=== PATIENT | female | born 1980 | race Two or more races ===

== ENCOUNTER → 2024-07-25 | Outpatient (CLI) | payer MEDICAID, SELFPAY ==
--- NOTE | 2024-07-25 10:45 | XR_ITS ---
Examination: Screening digital mammography, bilateral Computer aided detection 3-D breast Tomosynthesis, bilateral Date and time of exam: July 25, 2024 1044 hours No priors Indication: Screening Technique: Nonmagnified MLO, CC views of the breasts to been obtained, reconstructed from 3-D Tomosynthesis images. R2 computer aided detection program utilized for evaluation of suspicious masses and/or abnormal calcifications. 3-D Tomosynthesis images obtained. Findings: The breasts are heterogeneously dense, which may obscure small masses Benign calcifications No suspicious masses Impression: BI-RADS category II: Benign Findings. Recommend 1 year follow-up mammogram.
== END | disposition home or self-care (01) ==
PROVIDERS: PCP Obstetrics & Gynecology; Referring Provider Obstetrics & Gynecology; Visit Provider Obstetrics & Gynecology
DX: Z12.31 Encounter for screening mammogram for malignant neoplasm of breast (principal); R92.323 Mammographic fibroglandular density, bilateral breasts; R92.1 Mammographic calcification found on diagnostic imaging of breast
CPT/HCPCS: 77063; 77067

== ENCOUNTER → 2025-01-13 | Outpatient (CLI) | payer MEDICAID, SELFPAY ==
--- NOTE | 2025-01-13 | XR_ITS ---
Examination: Right hand 2 views Technique one AP lateral right hand 2 views Date and time: January 13, 2025 1128 hours INDICATIONS: Right hand pain beginning 2 months ago. FINDINGS: Mild juxta-articular bone demineralization. No fracture or dislocation. No erosive or other significant arthritic change. IMPRESSION: No erosive or other significant arthritic change
== END | disposition home or self-care (01) ==
PROVIDERS: PCP Obstetrics & Gynecology; Referring Provider Obstetrics & Gynecology; Visit Provider Obstetrics & Gynecology
DX: M79.641 Pain in right hand (principal)
CPT/HCPCS: 73120

== ENCOUNTER 2025-03-29 09:55 | Emergency (ER) | payer MEDICAID, SELFPAY ==
--- NOTE | 2025-03-29 10:07 | EKG_ITS ---
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
[2025-03-29 10:12] VITALS: BP 126/87; PULSE 76; RESP 16; TEMP 36.6; O2SAT 100; BMI 26.6
--- NOTE | 2025-03-29 10:25 | XR_ITS ---
Examination: CT brain head without contrast. 2-D sagittal coronal reconstructions Date and time of exam: March 29, 2025, 1035 hours, comparison March 31, 2021 INDICATIONS: Onset generalized head pain and dizziness today CTDI: vol (mGy): 47.5 DLP: (mGycm): 892 Technique: Multiple CT axial sections of the brain have been obtained, 5 mm slice thickness. Contrast has not been administered. 2-D sagittal, coronal reconstructions have been obtained Low dose protocols were performed. One or more of the following dose reduction techniques were used; automated exposure control, adjustment of the mA and/or KV according to patient size, use of iterative reconstruction technique. Findings: No significant ventricular enlargement. Intra-axial or extra-axial hemorrhage density is not seen. No mass effect or midline shift Basal cisterns are not remarkable. Fourth ventricle is midline. Cranial vault intact. Impression: Negative for acute hemorrhage, mass effect or midline shift Advise clinical correlation and follow-up accordingly
--- NOTE | 2025-03-29 10:25 | PD.EDRME ---
Rapid Medical Screening Exam [facility] Arrival date/time: 03/29/25 09:55 44-year-old female presents to the Emergency Department today for complaints of dizziness and fatigue today. Chief Complaint: Dizziness Vital signs: Vital Signs Temperature 97.8 F 03/29/25 10:12 Pulse Rate 76 03/29/25 10:12 Respiratory Rate 16 03/29/25 10:12 Blood Pressure 126/87 H 03/29/25 10:12 Pulse Oximetry (%) 100 03/29/25 10:12 Oxygen Delivery Method Room Air 03/29/25 10:12 Vital signs reviewed by provider: Yes Exam: On exam patient hemodynamically stable does not appear ill or toxic Clinical Impression: Labs and imaging obtained
[2025-03-29] MEDS: MECLIZINE HCL 25 MG TABLET 50 MG PO (10:36)
[2025-03-29 10:48] LABS: Basophils # (Auto) 0.0 Thou/mm3 (0.0-0.2); Basophils % (Auto) 0 % (0-2.5); Eosinophils # (Auto) 0.2 Thou/mm3 (0.0-0.5); Eosinophils % (Auto) 2 % (0-10); Hematocrit 37.0 % (36.0-46.0); Hemoglobin 12.5 g/dL (12.0-16.0); Immature Granulocytes Auto 0.02 Thou/mm3 (0.00-0.00); Lymphocytes # (Auto) 3.4 Thou/mm3 (1.0-4.8); Lymphocytes % (Auto) 40 % (10-50); Mean Corpuscular HGB Conc 33.8 g/dl (31.0-37.0); Mean Corpuscular Hemoglobin 30.9 pg (25.0-35.0); Mean Corpuscular Volume 92 fL (80-100); Monocytes # (Auto) 0.5 Thou/mm3 (0.0-0.8); Monocytes % (Auto) 5 % (0-12); Neutrophils # (Auto) 4.5 Thou/mm3 (1.8-7.7); Neutrophils % (Auto) 53 % (37-80); Nucleated Red Blood Cell # 0.00 Thou/mm3 (0.00-0.00); Nucleated Red Blood Cell % 0 /100 WBC (0); Platelet Count 214 Thou/mm3 (140-440); RDW Standard Deviation 42.9 fL (36.4-46.3); Red Blood Count 4.04 Miln/mm3 (4.00-5.20); White Blood Count 8.5 Thou/mm3 (3.6-11.0)
[2025-03-29 11:04] LABS: Alanine Aminotransferase 10 U/L (10-49); Albumin, Serum 4.8 gm/dL (3.5-5.0); Albumin/Globulin Ratio 2.1 (1.2-2.2); Alkaline Phosphatase 75 U/L (46-116); Anion Gap 10 (7-16); Aspartate Amino Transferase 17 U/L (0-34); BUN/Creatinine Ratio 12 Ratio (12-20); Bilirubin,Total 0.7 mg/dL (0.3-1.2); Blood Urea Nitrogen 7 mg/dL (9-23); Calcium 9.2 mg/dL (8.3-10.6); Calcium (Corrected) 9.2 mg/dL (8.5-10.1); Carbon Dioxide 23.3 mMol/L (20.0-31.0); Chloride 106 mMol/L (98-107); Creatinine (Component) 0.6 mg/dL (0.6-1.3); Estimated Creatinine Clearance 109.0 mL/min (>60); Globulin 2.3 gm/dL (2.3-3.5); Glucose 113 mg/dL (74-106); Osmolality,Calculated 276 (275-295); Potassium 3.8 mMol/L (3.4-5.1); Sodium 139 mMol/L (136-145); Total Protein 7.1 gm/dL (5.7-8.2); Troponin I < 0.002 ng/mL (0.0-0.045); eGFR > 60 See Note
[2025-03-29 11:12] LABS: Collection Type, Urine Clean Catch
[2025-03-29 11:25] LABS: Bacteria,Urine 1+; Bilirubin,Urine Negative (Negative); Blood,Urine Negative (Negative); Color,Urine Yellow (Lt Yel-Yel); Culture Indicated,Urine Contaminated; Glucose, Urine Negative (Negative); Hyaline Casts,Urine < 1 /hpf (0-1); Ketones,Urine Negative (Negative); Leukocyte Esterase,Urine Positive (Negative); Nitrite,Urine Negative (Negative); PH,Urine 6.5 (5.0-7.0); Protein,Urine 1+ (Neg - Trace); RBC,Urine 6 /hpf (0-3); Specific Gravity,Urine 1.027 (1.001-1.035); Squamous Epithelial Cell,Urine 14 /hpf (0-5); Urobilinogen,Urine Negative mg/dL (0.0-1.0); WBC,Urine 5 /hpf (0-5)
[2025-03-29 11:26] LABS: Clarity,Urine Hazy (Clear/Hazy)
[2025-03-29 11:27] LABS: HCG Qualitative,Urine Negative
[2025-03-29 11:32] LABS: Amphetamine/Methamp Scrn,U Negative (Negative); Barbiturate Screen,Urine Negative (Negative); Benzodiazepines Screen,Urine Negative (Negative); Benzoylecgonine Screen, Ur Negative (Negative); Fentanyl Screen,Urine Negative (Negative); Opiate Screen,Urine Negative (Negative); THC Screen,Urine Negative (Negative)
--- NOTE | 2025-03-29 12:26 | PD.EDDIZZY ---
ED Dizzyness RME/HPI General Chief Complaint: Dizziness Stated Complaint: DIZZY SINCE LAST NIGHT, VOMITING, HEART RACING Time Seen by Provider: 03/29/25 11:17 Arrival date/time: 03/29/25 09:55 44-year-old female patient came in for evaluation regarding sudden onset of dizziness. Onset of symptoms since last night as sudden onset of dizziness, with vertigo, associated with vomiting and palpitation and generalized body weakness. Denies any headache denies any focal neurologic deficit. Denies any fall denies any fever denies any other complaints no medication was taken prior to ER visit. RME / HPI RME / HPI Narrative: 03/29/25 09:55 44-year-old female presents to the Emergency Department today for complaints of dizziness and fatigue today. Exam: On exam patient hemodynamically stable does not appear ill or toxic Impression: Labs and imaging obtained Related Data Previous Rx's ?Medication ?Instructions ?Recorded ibuprofen 600 mg tablet 600 mg PO Q6H #30 tabs 08/27/19 ondansetron 4 mg disintegrating 4 mg PO Q8H PRN nausea and 03/31/21 tablet vomiting #10 tabs famotidine 20 mg tablet 20 mg PO QDAY #30 tabs 06/15/21 naproxen 375 mg tablet 375 mg PO QAM PRN pain #60 tabs 06/15/21 docusate sodium 100 mg capsule 100 mg PO BID #60 caps 12/01/23 (Colace) ibuprofen 800 mg tablet 800 mg PO Q6H PRN pain #120 tabs 12/01/23 lanolin 50 % topical ointment 1 applic topical TID PRN skin 12/01/23 irritation #15 tubes meclizine 50 mg tablet 50 mg PO BID PRN dizziness or 03/29/25 vertigo #30 tabs Allergies Allergy/AdvReac Type Severity Reaction Status Date / Time No Known Allergies Allergy Verified 03/29/25 10:02 Review of Systems Review of Systems Narrative Review of Systems: Review of system reviewed and within normal limits except mentioned in HPI ED Exam Narrative Physical exam: VITAL SIGNS: Reviewed. GENERAL APPEARANCE: Alert and interactive, follows commands, no acute distress, HEAD AND FACE: Non-traumatic. ENT: PERRL, pink conjunctivitis, eyelid no trauma, Mucous membrane moist. NECK: Supple, nontender, no nuchal rigidity. CHEST: No tenderness, no crepitus, no paradoxical movement, no retractions. LUNGS: Clear, well ventilated, symmetric, no rales, no wheezing, no ronchi, no stridor, good breath sounds bilaterally. HEART: Regular rate, regular rhythm, no murmur, no gallops. ABDOMEN: Soft, positive bowel sounds, nondistended, no guarding, nontender, no rebound, no masses, RECTAL: Deferred. GENITAL: Deferred. NEUROLOGICAL: Gross motor function intact sensory function intact, Appropriate for age. MUSCULOSKELETAL: low back nontender, full range of motion. EXTREMITIES: Nontender, full range of motion. SKIN: Color pink, dry, no rash, no lacerations, no abrasions, no contusions. LYMPHATICS: Deferred. Course Quality Measures none Orders Category Date Time Status EKG (ED ONLY) *Do not use* NOW Care 03/29/25 10:[address] head/brain wo con Stat Exams 03/29/25 10:25 Completed EKG (ED Only) Stat Exams 03/29/25 10:07 Draft CBC Stat Lab 03/29/25 10:36 Completed Comprehensive Metabolic Panel Stat Lab 03/29/25 10:36 Completed Drug Screen,Urine Stat Lab 03/29/25 11:00 Completed HCG Qualitative,Urine Stat Lab 03/29/25 11:00 Completed Troponin I Stat Lab 03/29/25 10:36 Completed Urinalysis, C/S if Indicated Stat Lab 03/29/25 11:00 Completed Meclizine HCl [Antivert] Med 03/29/25 10:25 Discontinued 50 mg PO X1 ONE Vital Signs Vital signs: Vital Signs Temperature 97.8 F 03/29/25 10:12 Pulse Rate 76 03/29/25 10:12 Respiratory Rate 16 03/29/25 10:12 Blood Pressure 126/87 H 03/29/25 10:12 Pulse Oximetry (%) 100 03/29/25 10:12 Oxygen Delivery Method Room Air 03/29/25 10:12 Dizziness MDM Narrative MDM Narrative:: 44-year-old female patient came in for evaluation regarding sudden onset of dizziness. Onset of symptoms since last night as sudden onset of dizziness, with vertigo, associated with vomiting and palpitation and generalized body weakness. Denies any headache denies any focal neurologic deficit. Denies any fall denies any fever denies any other complaints no medication was taken prior to ER visit. Patient's workup today all came back unremarkable including CT scan of the head which is normal EKG is normal sinus rhythm, ventricular rate of 76 bpm, no ST segment elevation or depression noted. Laboratory workup all came back unremarkable. Patient was given meclizine with complete resolution of symptoms patient is ambulatory unaided. Results discussed with the patient and family. Further imaging is not needed at this time discharge patient totally recover from dizziness and vertigo. Stable for discharge home Patient data External records reviewed:: None Clinical information provided by:: none Social determinants that could affect healthcare access:: none Patient has the following chronic illnesses:: None How is presenting disease/condition affected by chronic disease/condition?: no chronic disease Evaluation data The following diagnostics were reviewed and interpreted by me:: lab results, radiology exam(s) and EKG tracing(s) Lab and/or radiology exams considered but not ordered:: None Interpretation Summary: See above Medications / Prescriptions Medications or Prescriptions considered but not ordered:: None Medication administrations:: Medication Administration History Discontinued Medications Meclizine HCl (Meclizine Hcl 25 Mg Tablet) 50 mg PO X1 ONE Stop: 03/29/25 10:26 Last Admin: 03/29/25 10:36 Dose: 50 mg Documented By: Meclizine Consultations Consultation(s) initiated? (list below): No Diagnosis Dizziness Differential Diagnosis: benign paroxysmal positional vertigo and other (Dizziness, vertigo) Most likely diagnosis given after review of the tests above:: Dizziness and vertigo Admission Indicated Admission indicated?: not indicated Admission Request Was there a request for admission?: No Disposition Plan Disposition Plan: Discharge Discharge Attestation Discharge Attestation: The patient and all family members were given an opportunity to ask questions and understood the discharge instructions. Discharge instructions specifically effects, indications for sooner follow up or return to the emergency department, and the expected course of current diagnosis. Patient condition: Stable Discharge Plan Plan Patient Disposition: HOME (Self Care) Discharge Disposition comment: Stable Prescriptions/Referrals Prescriptions/Med Rec: New meclizine 50 mg tablet 50 mg PO BID PRN (Reason: dizziness or vertigo) Qty: 30 0RF No Action ondansetron 4 mg tablet,disintegrating 4 mg PO Q8H PRN (Reason: nausea and vomiting) Qty: 10 0RF ibuprofen 600 mg tablet 600 mg PO Q6H Qty: 30 0RF naproxen 375 mg tablet 375 mg PO QAM PRN (Reason: pain) Qty: 60 0RF famotidine 20 mg tablet 20 mg PO QDAY Qty: 30 0RF ibuprofen 800 mg tablet 800 mg PO Q6H MDD 4 PRN (Reason: pain) Qty: 120 0RF docusate sodium [Colace] 100 mg capsule 100 mg PO BID Qty: 60 0RF lanolin 50 % ointment 1 applic topical TID PRN (Reason: skin irritation) Qty: 15 0RF Referrals: Richard Blount MD [Primary Care Provider, [employer]] - In 1 week Problem List Clinical Impression: Dizziness Patient/Caregiver Discharge Instructions Discharge Activity: activity as tolerated Education Materials: Vertigo Medicine Tx Additional Instructions: Thank you for the opportunity for serving you today. You are stable for discharged . You are advised to: Follow-up with your PCP in 1 to 2 days Return to ED for worsening of symptoms Increase oral fluids Take medication as prescribed Print Language: Italian Stand Alone Forms: Padmini Award Info., Patient Portal Info Letter PA/HARI Supervising Physician ONUR/HARI Supervising Physician: MD Sincere
== END 2025-03-29 13:15 | disposition home or self-care (01) ==
PROVIDERS: Nurse Practitioner Primary Care; Emergency Provider Family Medicine; PCP Obstetrics & Gynecology
DX: R42 Dizziness and giddiness (principal)
CPT/HCPCS: 36415; 70450; 80053; 80307; 81001; 81025; 84484; 85025; 93005; 99283; A9270